=== PATIENT | female | born 1970 | race Caucasian/White ===

== ENCOUNTER → 2016-10-21 | Outpatient (CLI) | payer BC ==
[2016-10-21 07:59] LABS: Basophils % (A) 0 %; CH 27.6; CHCM 33.3; Eosinophils # (A) 0.1 k/uL (0-0.7); Eosinophils % (A) 2 %; HCT 42.6 % (34.0-46.0); HDW 2.53; HGB 14.1 gm/dL (11.4-16.0); Luc # (Auto) 0.11; Luc % (Auto) 1; Lymphocytes # (A) 1.8 k/uL (1.0-4.8); Lymphocytes % (A) 23 %; MCH 27.5 pg (25.0-35.0); MCHC 33.1 g/dL (31.0-37.0); MCV 83.3 fL (80.0-100.0); Monocytes # (A) 0.3 k/uL (0-1.0); Monocytes % (A) 4 %; Neutrophils # (A) 5.4 k/uL (1.3-7.7); Neutrophils % (A) 70 %; RBC 5.11 m/uL (3.80-5.40); RDW 14.2 % (11.5-15.5); WBC 7.8 k/uL (3.8-10.6); WBC (Perox) 8.12
[2016-10-21 08:23] LABS: ALT 25 U/L (9-52); AST 16 U/L (14-36); Alkaline Phosphatase 62 U/L (38-126); Anion Gap 8 mmol/L; Blood Urea Nitrogen 10 mg/dL (7-17); Carbon Dioxide 27 mmol/L (22-30); Chloride 106 mmol/L (98-107); Cholesterol 171 mg/dL (<200); Glucose 93 mg/dL (74-99); HDL Cholesterol 53 mg/dL (40-60); Non-African American GFR(MDRD) >60 (>60 ml/min/1.73 sqM); Potassium 4.5 mmol/L (3.5-5.1); Sodium 141 mmol/L (137-145); Total Bilirubin 0.6 mg/dL (0.2-1.3); Total Protein 6.8 g/dL (6.3-8.2); Triglycerides 100 mg/dL (<150)
--- NOTE | 2016-10-21 08:57 | XR ---
EXAMINATION TYPE: XR chest 2V DATE OF EXAM: 10/21/2016 COMPARISON: Prior chest x-ray 10/31/2012 HISTORY: Left rib pain TECHNIQUE: Frontal and lateral views of the chest are obtained. FINDINGS: There is no focal air space opacity, pleural effusion, or pneumothorax seen. The cardiac silhouette size is within normal limits. Surgical clips present in the upper abdomen. The osseous s tructures are intact. IMPRESSION: No acute cardiopulmonary process.
[2016-10-21 11:21] LABS: Hemoglobin A1C 5.6 % (4.2-6.1)
== END | disposition home or self-care (01) ==
LOC: LABWHC1 07:15
PROVIDERS: ATTEND Family Medicine
DX: R07.81 Pleurodynia (principal); E78.5 Hyperlipidemia, unspecified; R73.01 Impaired fasting glucose; E66.01 Morbid (severe) obesity due to excess calories
CPT/HCPCS: 36415; 71020; 80053; 80061; 83036; 84443; 85025

== ENCOUNTER → 2020-03-03 | Outpatient (CLI) | payer OTHER, BC ==
[2020-03-03 15:24] LABS: Potassium 4.9 mmol/L (3.5-5.1)
[2020-03-03 15:57] LABS: Basophils # (A) 0.1 k/uL (0-0.2); Basophils % (A) 1 %; Eosinophils # (A) 0.1 k/uL (0-0.7); Eosinophils % (A) 1 %; HCT 40.5 % (34.0-46.0); HGB 13.4 gm/dL (11.4-16.0); Lymphocytes # (A) 1.8 k/uL (1.0-4.8); Lymphocytes % (A) 19 %; MCH 28.1 pg (25.0-35.0); MCV 85.2 fL (80.0-100.0); Mean Platelet Volume 6.8; Monocytes # (A) 0.5 k/uL (0-1.0); Monocytes % (A) 5 %; Neutrophils # (A) 7.1 k/uL (1.3-7.7); Neutrophils % (A) 73 %; Platelet Count 291 k/uL (150-450); RBC 4.76 m/uL (3.80-5.40); RDW 12.9 % (11.5-15.5); WBC 9.7 k/uL (3.8-10.6)
== END | disposition home or self-care (01) ==
LOC: LABPAT 14:21
PROVIDERS: ATTEND Orthopaedic Surgery
DX: M75.42 Impingement syndrome of left shoulder (principal)
CPT/HCPCS: 36415; 80051; 85025; 93005

== ENCOUNTER 2020-03-17 12:50 | Day surgery (SDC) | payer OTHER, BC ==
[2020-03-13 09:58] VITALS: BMI 49.9
--- NOTE | 2020-03-16 11:04 | HP ---
HISTORY AND PHYSICAL REASON FOR ADMISSION: Surgery scheduled 03/17/2020. HISTORY OF PRESENT ILLNESS: Nancy Betancourt is a 50-year-old patient seen with progressive left shoulder pain. We discussed options for treatment. The patient elected to proceed with left shoulder arthroscopy. Consent was obtained. PAST MEDICAL HISTORY: Noncontributory. PAST SURGICAL HISTORY: Cholecystectomy, foot surgery. DAILY MEDICATIONS: Aleve. ALLERGIES: None. SOCIAL HISTORY: The patient denies tobacco use. PHYSICAL EXAMINATION: Evaluation of the left shoulder: Flexion 110, abduction 90, external rotation is 35 with weakness, tenderness along the anterolateral and acromion rotator cuff insertion site. Impingement sign is positive at 80 degrees. Drop-arm sign is positive. Distal neurovascular exam is intact. RADIOGRAPHS: Radiographs of the left shoulder revealed a type 2 anterior acromion, acromioclavicular joint osteoarthritis and cystic changes of the greater tuberosity. MRI of left shoulder revealed partial rotator cuff tendon tear, labral tear and partial biceps tendon tear. IMPRESSION: 1. Left shoulder impingement with rotator cuff tear. 2. Left shoulder labral tear. 3. Left shoulder partial biceps tendon tear. 4. Left shoulder acromioclavicular joint osteoarthritis. PLAN: Left shoulder arthroscopy with subacromial decompression, arthroscopic rotator cuff repair, arthroscopic labral repair versus debridement, arthroscopic Gregory procedure and probable biceps tenotomy. Surgery is 03/17/2020. MMODL / IJN: [id number] /
[~2020-03-17 12:50] MED LIST: DEXAMETHASONE SOD PHOSPHATE 4 MG/ML 1 ML VIAL IV ONE; HYDROmorphone 0.5 MG/0.5 ML SYRINGE IVP PRN; LACTATED RINGERS 1,000 ML IV SCH; ceFAZolin 3 GM in SODIUM CHLORIDE 0.9% 100 ML IVPB PRN
[2020-03-17 13:35] VITALS: RESP 16
[2020-03-17] MEDS ORDERED: LIDOCAINE 1% (10MG/ML) FOR IV START SQ ONE (13:40)
[2020-03-17] MEDS: ONDANSETRON 4 MG/2 ML VIAL IVP ONE ×2 (13:43→17:04)
[2020-03-17] MEDS ORDERED: MIDAZOLAM 2 MG/2 ML VIAL IV ONE (13:50)
[2020-03-17] MEDS ORDERED: SCOPOLAMINE 1.5MG/72HR PATCH TRANSDERM ONE ×2 (14:41→17:52)
[2020-03-17] MEDS ORDERED: LIDOCAINE 1% INJ 10MG/ML (20 ML MDV) ONE (14:50)
[2020-03-17] MEDS ORDERED: SUCCINYLCHOLINE CHLORIDE 100 MG/5 ML SYR IV ONE (14:50)
[2020-03-17] MEDS ORDERED: MIDAZOLAM 2 MG/2 ML VIAL ONE (14:50)
[2020-03-17] MEDS ORDERED: PROPOFOL 10 MG/ML 20 ML VIAL IV ONE (14:50)
[2020-03-17] MEDS ORDERED: DEXAMETHASONE SOD PHOSPHATE 4 MG/ML 1 ML VIAL ONE (14:50)
[2020-03-17] MEDS ORDERED: ROPIVACAINE 5 MG/ML 30 ML VIAL ONE (14:50)
[2020-03-17] MEDS ORDERED: fentaNYL (PF) 50 MCG/ML 2 ML AMP ONE (14:50)
[2020-03-17] MEDS ORDERED: ROCURONIUM 10 MG/ML (10 ML VIAL) IV ONE (14:50)
[2020-03-17] MEDS ORDERED: LACTATED RINGERS 1,000 ML IV ONE (16:07)
--- NOTE | 2020-03-17 16:54 | P.OP ---
Date of Procedure: 03/17/20 Preoperative Diagnosis: Left shoulder impingement Postoperative Diagnosis: 1. Left shoulder labral tear 2. Left shoulder impingement 3. Left shoulder partial long head biceps tendon tear Procedure(s) Performed: 1. Left shoulder arthroscopic labral repair 2. Left shoulder arthroscopic subacromial decompression 3. Left shoulder arthroscopic biceps tenotomy Implants: 2Arthrex anchors Anesthesia: GETA, regional (Interscalene block) Surgeon: Ike Sage Butcher Or Smallgoods Maker #1: Andrea Britton Estimated Blood Loss (ml): 11 Pathology: none sent Condition: stable Disposition: PACU Indications for Procedure: 50 year old patient seen with progressive left shoulder pain. After treatment options were discussed, she elected to proceed with arthroscopy Operative Findings: see description of procedure Description of Procedure: Patient underwent an interscalene block by department of anesthesia. The patient was then taken to the operative suite. The patient underwent a general anesthetic by the department of anesthesia. The patient was placed into a lateral position and secured. There was appropriate padding of the bony prominence. Left shoulder was then prepped and draped in normal sterile orthopedic fashion. We placed the extremity in 10 pounds of longitudinal traction. A posterior incision was now made for a posterior working portal site. The trocar and cannula were inserted into the glenohumeral joint. Arthroscopy was initiated. Spinal needle was now inserted anteriorly, to ascertain the anterior working portal site. An incision was now made in that area, a trocar was inserted followed by a probe. There was no obvious anterior labral tear from the 1:00 to 4 o'clock position. There was partial tearing of her long head biceps tendon. There were grade 1/2 chondral moist changes along the anterior aspect of the humeral head and glenoid. The posterior and inferior labrum were intact. The superior labrum was intact. I performed an arthroscopic biceps tenotomy. I now opened and made anterior portal site introduced a cannula. With the assistance of Adi ARANDA abraded the footprint anteriorly for repair of her labrum. I now made 2 drill holes in the anterior labrum. I now passed sutures through good bites of labral tissue. I now repaired the anterior labrum utilizing 2 Arthrex anchors with good purchase and fixation noted. Residual suture was clipped. The labral repair was probed and found be very stable. The remaining labrum was again probed and found to be stable. Instruments now removed from glenohumeral joint. Utilizing the posterior working portal site, the trocar and cannula were inserted into the subacromial space. Arthroscopy initiated. I made an incision 2 fingerbreadths lateral to the acromion. I introduced my trocar followed by my ArthroCare ablator. I now began ablating thick subacromial bursal tissue, which exposed the undersurface of the anterior acromion. There was diminished subacromial space. There was a very prominent anterior acromion. A motorized bur was introduced and a subacromial decompression was performed. I also excised some osteophytes off the inferior aspect of the distal clavicle. The AC joint was visualized and noted to be mildly arthritic. I did not think enough toward a Gregory procedure. I probed the rotator cuff tendon. There was no evidence for any perforation or tear. Instruments now removed from the portal sites. All portal sites were approximated with nylon suture. Sterile dressings were applied followed by a shoulder sling. Andrea ARANDA assisted in this complex case. The patient was awakened, transferred to a bed, and taken to recovery in stable condition.
[2020-03-17 17:00] VITALS: TEMP 97
[2020-03-17] MEDS ORDERED: diphenhydrAMINE 50 MG/ML 1 ML VIAL IVP ONE ×2 (17:08)
[2020-03-17] MEDS ORDERED: PROMETHAZINE INJ 25 MG/ML 1 ML VIAL IVPB ONE (17:30)
[2020-03-17 18:29] VITALS: BP 139/75; PULSE 114
--- NOTE | 2020-03-18 10:13 | P.ANPRN ---
Procedure Note - Anesthesia - Nerve Block Performed Left Interscalene Single Time Out Performed: Yes Date of Procedure: 03/17/20 Procedure Start Time: 13:49 Procedure Stop Time: 13:56 Location of Patient: PreOp Indication: Acute Post-Operative Pain, Requested by Surgeon Sedation Type: Sedate with meaningful contact maintained Preparation: Sterile Prep Position: Supine Needle Types: Pajunk Needle Gauge: 21 Ultrasound used to visualize needle placement: Yes Ultrasound used to observe medication spread: Yes Blood Aspirated: No Pain Paresthesia on Injection Noted: No Resistance on Injection: Normal Image Stored and Saved: Yes Events: Uneventful and Well Tolerated (ropi .5% 20cc plus dexamethasone 4mg)
--- NOTE | 2020-03-19 08:00 | CDI ---
Date: 03.19.2020 CDS/Live In Housekeeper Nanny Name: Neisha Garcia Phone: If any questions, call Nena Mcclure Ruling Technician at [phone] Patient Name: Tiffany Betancourt Admit Date 03.17.20 Discharge Date: 03.17.20 ATTENTION: The [facility] Coding Staff appreciate your assistance in clarifying documentation. Please respond to the clarification below the line at the bottom and electronically sign. The [facility] Coding staff will review the response and follow-up if needed. Please note: Queries are made part of the Legal Health Record. If you have any questions, please contact the Ruling Technician. Dear Dr. Sage In order to code to the greatest specificity and for the greatest reimbursement I need the following information: In your procedure note you have documented postop dx left shoulder labral tear and procedure performed labral repair. In the description of the procedure you have documented there was no obvious anterior labral tear from the 1:00 to 4 Oclock postion, then the posterior and inferior labrum were intact, the superior labrum was intact. Then you document abraded the footprint anteriorly for repair of her labrummade 2 drill holes in the anterior labrum. Please clarify was there a tear of the labrum, if so where. Thank you for your kind consideration. there was an anterior labral tear from the 1:00 to 4 o'clock position That should've read an obvious anterior labral tear____ MTDD
== END 2020-03-17 18:44 | disposition home or self-care (01) ==
LOC: OR 12:50
PROVIDERS: ATTEND Orthopaedic Surgery
DX: M25.812 Other specified joint disorders, left shoulder (principal); S43.432A Superior glenoid labrum lesion of left shoulder, initial encounter; S46.112A Strain of muscle, fascia and tendon of long head of biceps, left arm, initial encounter; X58.XXXA Exposure to other specified factors, initial encounter; M25.712 Osteophyte, left shoulder; M19.012 Primary osteoarthritis, left shoulder; Z90.49 Acquired absence of other specified parts of digestive tract; Z98.890 Other specified postprocedural states; Z79.1 Long term (current) use of non-steroidal anti-inflammatories (NSAID)
CPT/HCPCS: 29823; 64415; 76942; C1713 ×4; J2250; J1200; J1100; J2550; J0690; J2405; J2001; J3010; J2795; J0330; J2704

== ENCOUNTER 2020-06-19 11:36 | Emergency (ER) | payer BC, OTHER ==
[2020-06-19 11:45] VITALS: RESP 18
[2020-06-19] MEDS ORDERED: SODIUM CHLORIDE 0.9% 1,000 ML IV SCH (13:00)
--- NOTE | 2020-06-19 13:31 | XR ---
EXAMINATION TYPE: XR chest 2V DATE OF EXAM: 06/19/2020 COMPARISON: NONE TECHNIQUE: PA and lateral views submitted. HISTORY: Shortness of breath FINDINGS: The lungs are clear and there is no pneumothorax, pleural effusion, or focal pneumonia. Diffuse inte rstitial infiltrates. Heart size normal. IMPRESSION: 1. Bilateral interstitial infiltrates correlate for interstitial pneumonia.
[2020-06-19 13:34] LABS: Basophils % (A) 0 %; Eosinophils % (A) 0 %; HCT 42.2 % (34.0-46.0); Lymphocytes # (A) 0.5 k/uL (1.0-4.8); Lymphocytes % (A) 7 %; MCH 26.8 pg (25.0-35.0); MCHC 33.2 g/dL (31.0-37.0); MCV 80.6 fL (80.0-100.0); Mean Platelet Volume 7.1; Monocytes # (A) 0.3 k/uL (0-1.0); Monocytes % (A) 4 %; Neutrophils # (A) 6.7 k/uL (1.3-7.7); Neutrophils % (A) 88 %; Platelet Count 234 k/uL (150-450); RBC 5.24 m/uL (3.80-5.40); WBC 7.6 k/uL (3.8-10.6)
[2020-06-19] MEDS ORDERED: KETOROLAC 15 MG/ML 1 ML VIAL IVP STA (14:02)
[2020-06-19 14:12] LABS: ALT 29 U/L (4-34); AST 28 U/L (14-36); African American GFR (CKD) >90 (>60 ml/min/1.73 sqM); Albumin 3.6 g/dL (3.5-5.0); Alkaline Phosphatase 78 U/L (38-126); Anion Gap 7 mmol/L; Blood Urea Nitrogen 10 mg/dL (7-17); Calcium 8.4 mg/dL (8.4-10.2); Carbon Dioxide 24 mmol/L (22-30); Chloride 106 mmol/L (98-107); Glucose 147 mg/dL (74-99); Non-African American GFR(CKD) >90 (>60 ml/min/1.73 sqM); Potassium 4.2 mmol/L (3.5-5.1); Sodium 137 mmol/L (137-145); Total Bilirubin 0.6 mg/dL (0.2-1.3); Total Protein 6.6 g/dL (6.3-8.2)
[2020-06-19] MEDS ORDERED: BAMLANIVIMAB 700 MG in SODIUM CHLORIDE 0.9% 50 ML IVPB ONE (14:30)
--- NOTE | 2020-06-19 15:05 | ED ---
SOB HPI - General Chief Complaint: Shortness of Breath Stated Complaint: COVID+ Time Seen by Provider: 06/19/20 12:26 Source: patient Mode of arrival: wheelchair Limitations: no limitations - History of Present Illness Initial Comments: 50-year-old feel presenting today for chief complaint of shortness of breath with cold with positive testing outpatient. Patient states that she has had symptoms for about a week now she states she is now having worsening shortness of breath. Patient denies hemoptysis but does admit to sputum production. Patietn denies nausea, vomiting, diarrhea, neck stiffness, leg swelling, calf tenderness, hx of DVT/PE, denies chest pain, pleuritic chest pain. Patient appears nontoxic, in no distress on arrival. Remaining ROS (-) - Related Data Home Medications Medication Instructions Recorded Confirmed Zinc 50 mg PO DAILY 03/13/20 06/19/20 Ascorbic Acid [Vitamin C] 500 mg PO DAILY 06/19/20 06/19/20 Cholecalciferol [Vitamin D3 (25 25 mcg PO DAILY 06/19/20 06/19/20 Mcg = 1000 Iu)] Dexamethasone 6 mg PO DAILY 06/19/20 06/19/20 Previous Rx's Medication Instructions Recorded Dexamethasone [Decadron] 6 mg PO DAILY 2 Days #2 tablet 06/19/20 Allergies Allergy/AdvReac Type Severity Reaction Status Date / Time No Known Allergies Allergy Verified 06/19/20 14:01 Review of Systems ROS Statement: Those systems with pertinent positive or pertinent negative responses have been documented in the HPI. ROS Other: All systems not noted in ROS Statement are negative. Past Medical History Past Medical History: Osteoarthritis (OA) History of Any Multi-Drug Resistant Organisms: None Reported Past Surgical History: Cholecystectomy, Uterine Ablation Past Anesthesia/Blood Transfusion Reactions: Postoperative Nausea & Vomiting (PONV) Additional Past Anesthesia/Blood Transfusion Reaction / Comment(s): pt states was given narcan after last surgery Past Psychological History: Anxiety Smoking Status: Never smoker Past Alcohol Use History: None Reported Past Drug Use History: None Reported - Past Family History Father Family Medical History: Cancer Sister(s) Family Medical History: Cancer General Exam - General Exam Comments Initial Comments: General: The patient is awake and alert, in no distress Eye: +3 mm pupils are equal, round and reactive to light, extra-ocular movements are intact. No nystagmus. There is normal conjunctiva bilaterally. No signs of icterus. Ears, nose, mouth and throat: There are moist mucous membranes and no oral lesions. Neck: The neck is supple, there is no tenderness or JVD. Cardiovascular: There is a regular rate and rhythm. No murmur, rub or gallop is appreciated. Respiratory: Lungs are clear to auscultation, respirations are non-labored, breath sounds are equal. No wheezes, stridor, rales, or rhonchi. Gastrointestinal: Soft, non-distended, non-tender abdomen without masses or organomegaly noted. There is no rebound or guarding present. Musculoskeletal: Normal ROM, no tenderness. Strength 5/5. Sensation intact. radial and DP pulses equal bilaterally 2+. Neurological: A&O x 3. CN II-XII intact grossly, There are no obvious motor or sensory deficits. Coordination appears grossly intact. Speech is normal. Skin: Skin is warm and dry and no rashes or lesions are noted. No LE edema, no calf pain. Psychiatric: Cooperative, appropriate mood & affect, normal judgment. Limitations: no limitations Course Vital Signs 06/19/20 11:42 Temperature 99.5 F Pulse Rate 92 Respiratory 18 Rate Blood Pressure 120/91 O2 Sat by Pulse 94 L Oximetry Medical Decision Making - Medical Decision Making Labs stable. Lungs clear. Patient is in no distress 94-95% on RA. Patient cxr b/l infiltrates, pt hx of covid. SHe is afebrile, nontoxic in appearance. Patient wanted the monoclonal antibodies after discussing risk vs benefit. Patient tolerated the antibodies well I discussed the chest x-ray results risk of worsening conditions in the importance of home monitoring. Patient does have a home pulse ox and is agreeable to discharge with return for worsening symptoms. - Lab Data Result diagrams: 06/19/20 13:15 06/19/20 13:15 Lab Results 06/19/20 06/19/20 Range/Units 13:15 13:15 WBC 7.6 (3.8-10.6) k/uL RBC 5.24 (3.80-5.40) m/uL Hgb 14.0 (11.4-16.0) gm/dL Hct 42.2 (34.0-46.0) % MCV 80.6 (80.0-100.0) fL MCH 26.8 (25.0-35.0) pg MCHC 33.2 (31.0-37.0) g/dL RDW 13.0 (11.5-15.5) % Plt Count 234 (150-450) k/uL MPV 7.1 Neutrophils % 88 % Lymphocytes % 7 % Monocytes % 4 % Eosinophils % 0 % Basophils % 0 % Neutrophils # 6.7 (1.3-7.7) k/uL Lymphocytes # 0.5 L (1.0-4.8) k/uL Monocytes # 0.3 (0-1.0) k/uL Eosinophils # 0.0 (0-0.7) k/uL Basophils # 0.0 (0-0.2) k/uL Sodium 137 (137-145) mmol/L Potassium 4.2 (3.5-5.1) mmol/L Chloride 106 (98-107) mmol/L Carbon Dioxide 24 (22-30) mmol/L Anion Gap 7 mmol/L BUN 10 (7-17) mg/dL Creatinine 0.54 (0.52-1.04) mg/dL Est GFR (CKD-EPI)AfAm >90 (>60 ml/min/1.73 sqM) Est GFR (CKD-EPI)NonAf >90 (>60 ml/min/1.73 sqM) Glucose 147 H (74-99) mg/dL Calcium 8.4 (8.4-10.2) mg/dL Total Bilirubin 0.6 (0.2-1.3) mg/dL AST 28 (14-36) U/L ALT 29 (4-34) U/L Alkaline Phosphatase 78 (38-126) U/L Total Protein 6.6 (6.3-8.2) g/dL Albumin 3.6 (3.5-5.0) g/dL Disposition Clinical Impression: COVID-19, Dyspnea, Pneumonia due to COVID-19 virus Disposition: HOME SELF-CARE Condition: Good Instructions (If sedation given, give patient instructions): Coronavirus Disease 2019 (COVID-19) Additional Instructions: Please use medication as discussed. Please follow-up with family doctor in the next 2 days. Return for oxygen levesl < 91% or increased shortness of breath. Please return to emergency room if the symptoms increase or worsen or for any other concerns. Prescriptions: Dexamethasone [Decadron] 6 mg PO DAILY 2 Days #2 tablet Is patient prescribed a controlled substance at d/c from ED?: No Referrals: None,Stated [Primary Care Provider] - 1-2 days Time of Disposition: 16:10
[2020-06-19 16:59] VITALS: BP 133/78; PULSE 68; TEMP 98.8
== END 2020-06-19 16:59 | disposition home or self-care (01) ==
LOC: EC 11:36
DX: U07.1 COVID-19 (principal); J12.82 Pneumonia due to coronavirus disease 2019; F41.9 Anxiety disorder, unspecified; M19.90 Unspecified osteoarthritis, unspecified site; Z79.52 Long term (current) use of systemic steroids
CPT/HCPCS: 36415; 80053; 85025; 71046; 99285; 96374; 96375; J1885; Q0239

== ENCOUNTER → 2021-05-02 | Outpatient (CLI) | payer BC ==
[2021-05-02 11:11] LABS: Basophils # (A) 0.07 X 10*3/uL (0.00-0.10); Basophils % (A) 0.9 %; Eosinophils # (A) 0.09 X 10*3/uL (0.04-0.35); Eosinophils % (A) 1.1 %; HCT 41.8 % (37.2-46.3); HGB 13.2 g/dL (12.0-15.0); Lymphocytes # (A) 1.67 X 10*3/uL (0.90-5.00); Lymphocytes % (A) 20.9 %; MCH 27.6 pg (27.0-32.0); MCHC 31.6 g/dL (32.0-37.0); MCV 87.3 fL (80.0-97.0); Mean Platelet Volume 9.7 fL (9.5-12.2); Monocytes # (A) 0.44 X 10*3/uL (0.20-1.00); Monocytes % (A) 5.5 %; Neutrophils # (A) 5.68 X 10*3/uL (1.80-7.70); Neutrophils % (A) 71.2 %; Platelet Count 288 X 10*3/uL (140-440); RBC 4.79 X 10*6/uL (4.10-5.20); RDW 12.8 % (11.5-14.5); WBC 7.98 X 10*3/uL (4.50-10.00)
[2021-05-02 11:30] LABS: ALT 14 U/L (8-44); AST 16 U/L (13-35); African American GFR (CKD) 115.5 (60.0-200.0); Albumin/Globulin Ratio 1.33 (1.60-3.17); Alkaline Phosphatase 101 U/L (41-126); Blood Urea Nitrogen 9.1 mg/dL (9.0-27.0); Calcium 9.2 mg/dL (8.7-10.3); Carbon Dioxide 24.3 mmol/L (20.0-27.5); Chloride 104 mmol/L (96-109); Chol/HDL Ratio 3.17 Ratio; Glucose 93 mg/dL (70-110); LDL Cholesterol,Calculated 105.2 mg/dL (0.0-131.0); Non-African American GFR(CKD) 99.6 (60.0-200.0); Potassium 4.3 mmol/L (3.5-5.5); Sodium 139 mmol/L (135-145)
[2021-05-02 11:32] LABS: Hepatitis A Antibody IgM Nonreactive (Nonreactive); Hepatitis B Core IgM Nonreactive (Nonreactive); Hepatitis B Surface Antigen Nonreactive (Nonreactive); Hepatitis C IgG Antibody Nonreactive (Nonreactive)
== END | disposition home or self-care (01) ==
LOC: LABWHC1 08:24
PROVIDERS: ATTEND Family Medicine
DX: Z00.00 Encounter for general adult medical examination without abnormal findings (principal); Z12.31 Encounter for screening mammogram for malignant neoplasm of breast; Z12.4 Encounter for screening for malignant neoplasm of cervix; Z12.11 Encounter for screening for malignant neoplasm of colon; E78.5 Hyperlipidemia, unspecified; K21.9 Gastro-esophageal reflux disease without esophagitis; R68.82 Decreased libido; F32.A Depression, unspecified; G43.909 Migraine, unspecified, not intractable, without status migrainosus; R73.01 Impaired fasting glucose
CPT/HCPCS: 36415; 80053; 80061; 80074; 84443; 85025

== ENCOUNTER 2021-05-27 07:40 | Day surgery (SDC) | payer BC ==
[2021-05-25 10:18] VITALS: BMI 44.4
[~2021-05-27 07:40] MED LIST changes: -DEXAMETHASONE SOD PHOSPHATE 4 MG/ML 1 ML VIAL IV ONE; -HYDROmorphone 0.5 MG/0.5 ML SYRINGE IVP PRN; -ceFAZolin 3 GM in SODIUM CHLORIDE 0.9% 100 ML IVPB PRN
[2021-05-27 08:10] VITALS: TEMP 96.8
--- NOTE | 2021-05-27 08:13 | P.GSHP ---
History of Present Illness H&P Date: 05/27/21 CHIEF COMPLAINT: Colon screen HISTORY OF PRESENT ILLNESS: The patient is a 51-year-old female who presents for colon screen. Lower endoscopy was offered for further evaluation and management. PAST MEDICAL HISTORY: Please see list. PAST SURGICAL HISTORY: Please see list. MEDICATIONS: Please see list. ALLERGIES: Please see list. SOCIAL HISTORY: No illicit drug use FAMILY HISTORY: No reports of Crohn disease or ulcerative colitis. REVIEW OF ORGAN SYSTEMS: CONSTITUTIONAL: No reports of fevers or chills. PHYSICAL EXAM: VITAL SIGNS: Stable GENERAL: Well-developed pleasant in no acute distress. HEENT: No scleral icterus. Extraocular movements grossly intact. Moist buccal mucosa. NECK: Supple without lymphadenopathy. CHEST: Unlabored respirations. Equal bilateral excursions. CARDIOVASCULAR: Regular rate and rhythm. Distal 2+ pulses. ABDOMEN: Soft, nontender, nondistended. MUSCULOSKELETAL: No clubbing, cyanosis, or edema. ASSESSMENT: 1. Colon screen. PLAN: 1. Recommend proceeding with a lower endoscopy Past Medical History Past Medical History: Osteoarthritis (OA) History of Any Multi-Drug Resistant Organisms: None Reported Past Surgical History: Cholecystectomy, Orthopedic Surgery, Uterine Ablation Additional Past Surgical History / Comment(s): LT SHOULDER SX Past Anesthesia/Blood Transfusion Reactions: Postoperative Nausea & Vomiting (PONV) Additional Past Anesthesia/Blood Transfusion Reaction / Comment(s): pt states was given narcan after last surgery-UTERINE ABLATION, NO PROBLEMS WITH SHOULDER SX Smoking Status: Never smoker - Past Family History Father Family Medical History: Cancer Sister(s) Family Medical History: Cancer Medications and Allergies Home Medications Medication Instructions Recorded Confirmed Type buPROPion HCL [Wellbutrin XL] 300 mg PO DAILY 05/25/21 05/25/21 History Allergies Allergy/AdvReac Type Severity Reaction Status Date / Time No Known Allergies Allergy Verified 05/25/21 10:06 Surgical - Exam Vital Signs Temp Pulse Resp BP Pulse Ox 96.8 F L 102 H 16 145/65 97 05/27/21 08:09 05/27/21 08:09 05/27/21 08:09 05/27/21 08:09 05/27/21 08:09
[2021-05-27] MEDS ORDERED: PROPOFOL 10 MG/ML 20 ML VIAL IV ONE (08:15)
--- NOTE | 2021-05-27 08:37 | P.PCN ---
Date of Procedure: 05/27/21 Description of Procedure: PREOPERATIVE DIAGNOSIS: Colonoscopy screening. POSTOPERATIVE DIAGNOSIS: Colonoscopy screening. Diverticulosis, scattered. OPERATION: Colonoscopy to the cecum, ileocecal valve and appendiceal orifice. SURGEON: Bettina Culp MD. ANESTHESIA: MAC. INDICATIONS: The patient is a 51-year-old female who presents for colonoscopy screening. Benefits and risks were described and informed consent was obtained. DESCRIPTION OF PROCEDURE: The patient had undergone Sutab prep. The patient had been brought into the operating room and laid in the left lateral decubitus position. After adequate intravenous sedation, the rectum was examined with 2% lidocaine jelly. No external hemorrhoids were encountered. The rectal tone was within normal limits. No lesions were palpated in the rectal vault. An Olympus colonoscope was advanced until the cecum, ileocecal valve and appendiceal orifice were clearly viewed. The prep was good. Scattered sigmoid diverticulosis was encountered. No colonic polyps were found. No evidence of focal colitis was found. Retroflexion of the scope demonstrated grade 1 internal hemorrhoids without active bleeding or inflammation. The colon was desufflated. The patient had tolerated the procedure well. Withdrawal time was over 6 minutes. FINDINGS: Aronchick preparation quality scale 2 (1-5) Internal hemorrhoids, grade 1 No external prolapsed hemorrhoids. No arteriovenous malformations. No adenomatous polyps. No focal colitis. Sigmoid diverticulosis RECOMMENDATIONS: Lower endoscopy 2031 Plan - Discharge Summary Discharge Rx Participant: No New Discharge Prescriptions: Continue buPROPion HCL [Wellbutrin XL] 300 mg PO DAILY Discharge Medication List buPROPion HCL [Wellbutrin XL] 300 mg PO DAILY 05/25/21 [History] Follow up Appointment(s)/Referral(s): Bettina Culp MD [STAFF PHYSICIAN] - As Needed Patient Instructions/Handouts: *Surgery [facility] - (Anesthesia) Endoscopy Discharge Instructions, Diverticulosis Diet (GEN), Diverticulosis (ED) Activity/Diet/Wound Care/Special Instructions: Repeat colonoscopy 2031 Discharge Disposition: HOME SELF-CARE
[2021-05-27 08:54] VITALS: BP 97/61; PULSE 70; RESP 20
== END 2021-05-27 09:26 | disposition home or self-care (01) ==
LOC: ORWHC2ENDO 07:40
PROVIDERS: ATTEND Surgery Plastic and Reconstructive Surgery
DX: Z12.11 Encounter for screening for malignant neoplasm of colon (principal); K57.30 Diverticulosis of large intestine without perforation or abscess without bleeding; K64.0 First degree hemorrhoids; Z79.899 Other long term (current) drug therapy; F32.A Depression, unspecified; E66.01 Morbid (severe) obesity due to excess calories; Z68.41 Body mass index [BMI] 40.0-44.9, adult; M19.90 Unspecified osteoarthritis, unspecified site; Z90.49 Acquired absence of other specified parts of digestive tract; Z98.890 Other specified postprocedural states; Z80.9 Family history of malignant neoplasm, unspecified
CPT/HCPCS: J2704; G0121

== ENCOUNTER → 2021-05-29 | Outpatient (CLI) | payer BC ==
--- NOTE | 2021-05-29 12:17 | MM ---
Reason for exam: screening (asymptomatic). Last mammogram was performed 5 years and 4 months ago. History: Patient is postmenopausal and is nulliparous. Took hormonal contraceptives for 8 years beginning at age 17. Physical Findings: A clinical breast exam by your physician is recommended on an annual basis and results should be correlated with mammographic findings. MG 3D Screening Mammo W/Cad Bilateral CC and MLO view(s) were taken. Prior study comparison: February 02, 2016, bilateral MG 3d screening mammo w/cad. January 29, 2015, bilateral MG screening mammo w CAD. There are scattered fibroglandular densities. There is no discrete abnormality. No significant changes when compared with prior studies. ASSESSMENT: Negative, BI-RAD 1 RECOMMENDATION: Routine screening mammogram of both breasts in 1 year.
== END | disposition home or self-care (01) ==
LOC: RADMAMWWP 07:42
PROVIDERS: ATTEND Family Medicine
DX: Z12.31 Encounter for screening mammogram for malignant neoplasm of breast (principal)
CPT/HCPCS: 77063; 77067

== ENCOUNTER → 2024-07-27 | Outpatient (CLI) | payer OTHER ==
--- NOTE | 2024-07-27 09:16 | XR ---
EXAMINATION TYPE: XR finger LT DATE OF EXAM: 07/27/2024 9:10 AM COMPARISON: None. CLINICAL INDICATION: Female, 54 years old with history of L03.90 CELLULITIS, UNSPECIFIED, pain TECHNIQUE: XR finger LT views are submitted. FINDINGS: No displaced fracture is seen with certainty. Joint spaces are well-preserved. Mild soft tissue swel ling without radiopaque foreign body. IMPRESSION: No acute displaced fracture or dislocation. [facility], , 07/27/2024 9:13 AM
== END | disposition home or self-care (01) ==
LOC: RADXRMAIN 08:54
PROVIDERS: ATTEND Family Medicine
DX: L03.124 Acute lymphangitis of left upper limb (principal)